=== PATIENT | male | born 1960 | race Hispanic/Latino ===

== ENCOUNTER 2022-12-22 11:58 | Emergency (ER) | payer BC ==
[~2022-12-22 11:58] MED LIST: Iopamidol-370 76% 500 ML MDV (1 ML CHARGE) ONE
[2022-12-22 12:48] LABS: #Basophils 0.1 thou/uL (0.0-0.2); #Eosinphils 0.2 thou/uL (0.0-0.7); #Monocytes 0.5 thou/uL (0.11-0.59); #Neutrophils 4.7 thou/uL (1.40-6.50); %Basophils 0.9 % (0.0-1.0); %Eosinophils 2.1 % (0.0-10.0); %Lymphocytes 26.7 % (21.0-51.0); %Monocytes 7.1 % (0.0-10.0); %Neutrophils 63.2 % (42.0-75.0); Hemoglobin 13.2 g/dL (14.0-18.0); Mean Corpuscular Hemoglobin 33.8 pg (27.0-31.0); Mean Platelet Volume 7.6 fL (7.4-10.4); Platelet Count 253 10x3/uL (130-400); RBC Distribution Width 12.9 % (11.5-14.5); Red Blood Cell (RBC) Count 3.92 mill/uL (4.70-6.10); White Blood Cell (WBC) Count 7.4 10x3/uL (4.8-10.8)
[2022-12-22 13:10] LABS: ALT (SGPT) 16 U/L (8-55); AST (SGOT) 15 U/L (5-34); Albumin 4.5 g/dL (3.5-5.0); Alkaline Phosphatase 90 U/L (40-110); Anion Gap 14 mmol/L (10-20); BUN (Urea Nitrogen) 11 mg/dL (8.4-25.7); Bilirubin, Total 0.5 mg/dL (0.2-1.2); Calc. Creatinine Clearance 0 mL/min (70-130); Calcium 9.8 mg/dL (7.8-10.44); Carbon Dioxide 26 mmol/L (22-29); Chloride 104 mmol/L (98-107); Estimated GFR 100; Glucose 99 mg/dL (70-105); Potassium 4.5 mmol/L (3.5-5.1); Protein, Total 7.5 g/dL (6.0-8.3); Sodium 139 mmol/L (136-145)
[2022-12-22 13:48] LABS: Bacteria/HPF None Seen HPF (None Seen); Bilirubin Negative (Negative); Blood, Urine Trace (Negative); Clarity Clear (Clear); Glucose, Urine (Dipstick) Normal (Negative); Ketone, Urine Negative (Negative); Leukocyte Negative Leu/uL (Negative); Nitrite Negative (Negative); Protein, Urine (Dipstick) Negative (Neg-Trace); RBC/HPF 0-3 HPF (0-3); Specific Gravity, Urine 1.013 (1.002-1.036); Squamous Epithelial None Seen HPF (0-3); Urobilinogen Normal mg/dL (Less than 2); WBC/HPF 0-3 HPF (0-3)
== END 2022-12-22 15:22 | disposition home or self-care (01) ==
LOC: ERS 11:58
DX: R33.9 Retention of urine, unspecified (principal); N39.43 Post-void dribbling; F17.210 Nicotine dependence, cigarettes, uncomplicated
CPT/HCPCS: 36415; 51702; 74177; 80053; 81003; 81015; 85025; Q9967

== ENCOUNTER 2023-01-03 12:00 | Emergency (ER) | payer BC ==
[2023-01-03 13:32] LABS: #Basophils 0.1 thou/uL (0.0-0.2); #Eosinphils 0.1 thou/uL (0.0-0.7); #Lymphocytes 1.9 thou/uL (1.20-3.40); #Monocytes 0.6 thou/uL (0.11-0.59); #Neutrophils 4.5 thou/uL (1.40-6.50); %Basophils 0.9 % (0.0-1.0); %Lymphocytes 26.6 % (21.0-51.0); %Monocytes 8.5 % (0.0-10.0); Hemoglobin 11.3 g/dL (14.0-18.0); Mean Corpuscular HGB CONC 33.8 g/dL (32.0-36.0); Mean Corpuscular Hemoglobin 34.3 pg (27.0-31.0); Mean Platelet Volume 7.8 fL (7.4-10.4); Platelet Count 252 10x3/uL (130-400); RBC Distribution Width 12.7 % (11.5-14.5); Red Blood Cell (RBC) Count 3.29 mill/uL (4.70-6.10); White Blood Cell (WBC) Count 7.3 10x3/uL (4.8-10.8)
[2023-01-03 14:09] LABS: ALT (SGPT) 20 U/L (8-55); AST (SGOT) 18 U/L (5-34); Albumin 3.8 g/dL (3.5-5.0); Alkaline Phosphatase 82 U/L (40-110); Anion Gap 15 mmol/L (10-20); BUN (Urea Nitrogen) 17 mg/dL (8.4-25.7); Bilirubin, Total 0.3 mg/dL (0.2-1.2); Calc. Creatinine Clearance 0 mL/min (70-130); Calcium 10.2 mg/dL (7.8-10.44); Carbon Dioxide 25 mmol/L (22-29); Chloride 104 mmol/L (98-107); Estimated GFR 104; Globulin 3.3 g/dL (2.4-3.5); Glucose 87 mg/dL (70-105); Potassium 4.3 mmol/L (3.5-5.1); Protein, Total 7.1 g/dL (6.0-8.3); Sodium 140 mmol/L (136-145)
[2023-01-03 15:41] LABS: Bacteria/HPF None Seen HPF (None Seen); Bilirubin Negative (Negative); Blood, Urine 2+ (Negative); Calcium Oxalate Crystals Rare HPF (None Seen); Clarity Turbid (Clear); Glucose, Urine (Dipstick) Normal (Negative); Ketone, Urine Negative (Negative); Leukocyte 500 Leu/uL (Negative); Mucous/LPF 3+ LPF (<2+); Nitrite Negative (Negative); Protein, Urine (Dipstick) 50 mg/dL (Neg-Trace); RBC/HPF 21-50 HPF (0-3); Specific Gravity, Urine 1.037 (1.002-1.036); Squamous Epithelial 0-3 HPF (0-3); Urobilinogen Normal mg/dL (Less than 2); WBC/HPF Greater than 50 HPF (0-3); pH, Urine 5.5 (5.0-9.0)
== END 2023-01-03 15:40 | disposition home or self-care (01) ==
LOC: ERS 12:00
DX: K59.00 Constipation, unspecified (principal); F17.210 Nicotine dependence, cigarettes, uncomplicated
CPT/HCPCS: 36415; 74018; 80053; 81003; 81015; 85025

== ENCOUNTER 2023-01-18 12:14 | Outpatient (CLI) | payer BC | END 2023-01-18 12:15 | disposition home or self-care (01) | LOC: SCSMRI 12:14 | PROVIDERS: ATTEND Internal Medicine | DX: C34.90 Malignant neoplasm of unspecified part of unspecified bronchus or lung (principal); C79.31 Secondary malignant neoplasm of brain; G93.6 Cerebral edema | CPT/HCPCS: 70553 ==

== ENCOUNTER 2023-02-19 15:02 | Inpatient (IN) | payer BC ==
[2023-02-19 15:44] LABS: Hemoglobin 13.9 g/dL (14.0-18.0); Mean Corpuscular HGB CONC 33.1 g/dL (32.0-36.0); Mean Corpuscular Hemoglobin 30.8 pg (27.0-31.0); Mean Corpuscular Volume 92.9 fl (78.0-98.0); RBC Distribution Width 13.2 % (11.5-14.5); Red Blood Cell (RBC) Count 4.52 mill/uL (4.70-6.10); White Blood Cell (WBC) Count 4.7 10x3/uL (4.8-10.8)
[2023-02-19 15:46] LABS: Delete Auto Diff?? YES; Manual Diff?? YES; Platelet Count 119 10x3/uL (130-400)
[2023-02-19 16:08] LABS: ALT (SGPT) 844 U/L (8-55); AST (SGOT) 620 U/L (5-34); Albumin 3.3 g/dL (3.5-5.0); Alkaline Phosphatase 123 U/L (40-110); Anion Gap 14 mmol/L (10-20); BUN (Urea Nitrogen) 41 mg/dL (8.4-25.7); Band 29 % (5-11); Bilirubin, Total 0.6 mg/dL (0.2-1.2); Calc. Creatinine Clearance 0 mL/min (70-130); Calcium 9.4 mg/dL (7.8-10.44); Carbon Dioxide 31 mmol/L (22-29); CellaVision Operator ID LAB.MJL; Chloride 101 mmol/L (98-107); Estimated GFR 99; Glucose 184 mg/dL (70-105); Lymphocytes 1 % (21-51); Monocytes 5 % (0-10); Neutrophil 65 % (42-75); Platelet Adequacy Comment Platelets Decreased; Potassium 4.4 mmol/L (3.5-5.1); Protein, Total 6.3 g/dL (6.0-8.3); RBC Morphology Within Normal Limits; Sodium 142 mmol/L (136-145); Total Cell Count 102
[2023-02-19] MEDS ORDERED: Ampicillin/Sulbactam 3 GM in Sodium Chloride 0.9% 100 ML IVPB SCH ×2 (17:45→23:59)
[2023-02-19] MEDS ORDERED: Ondansetron PF 4 MG/2 ML Vial IVP PRN (21:01)
[2023-02-19 21:13] LABS: Bacteria/HPF 4+ HPF (None Seen); Bilirubin Negative (Negative); Blood, Urine 3+ (Negative); CAUTI Indications for Culture Spinal Cord Injury; Clarity Extra Turbid (Clear); Glucose, Urine (Dipstick) Normal (Negative); Ketone, Urine Negative (Negative); Leukocyte 500 Leu/uL (Negative); Nitrite 2+ (Negative); Protein, Urine (Dipstick) 70 mg/dL (Neg-Trace); RBC/HPF Greater than 50 HPF (0-3); Squamous Epithelial None Seen HPF (0-3); Triple Phosphate Crystal 2+ HPF (None Seen); Urobilinogen Normal mg/dL (Less than 2); WBC/HPF Greater than 50 HPF (0-3)
[2023-02-19 21:14] LABS: Specific Gravity, Urine 1.044 (1.002-1.036)
[2023-02-19 21:15] LABS: Urine Culture Reflex Yes Yes
[2023-02-19] MEDS ORDERED: Lactated Ringer's 500 ML IV SCH (21:30)
[2023-02-19] MEDS ORDERED: Pantoprazole 40 MG VIAL IVP SCH (21:30)
[2023-02-19] MEDS: Dextrose 5%-Lactated Ringers 1,000 ML IV SCH (22:49)
[2023-02-19] MEDS ORDERED: Lactated Ringer's 1,000 ML IV SCH (23:15)
[2023-02-19] MEDS ORDERED: Vancomycin 1 GM in Premix Bag 1 BAG IVPB SCH (23:15)
[2023-02-19 23:19] LABS: Hemoglobin A1c 6.7 % (4.0-6.0)
[2023-02-20] MEDS: Dextrose 5%-Lactated Ringers 1,000 ML IV SCH ×2 (00:46→17:00)
[2023-02-20] MEDS: Cefepime 2 GM in Sodium Chloride 0.9% 100 ML IVPB SCH ×3 (00:47→23:30)
[2023-02-20 04:57] LABS: #Neutrophils 3.7 thou/uL (1.40-6.50); %Lymphocytes 1.6 % (21.0-51.0); %Monocytes 0.5 % (0.0-10.0); %Neutrophils 97.4 % (42.0-75.0); Hemoglobin 11.5 g/dL (14.0-18.0); Mean Corpuscular HGB CONC 32.7 g/dL (32.0-36.0); Mean Corpuscular Hemoglobin 30.8 pg (27.0-31.0); Mean Corpuscular Volume 94.4 fl (78.0-98.0); Mean Platelet Volume 10.4 fL (7.4-10.4); Platelet Count 94 10x3/uL (130-400); RBC Distribution Width 13.3 % (11.5-14.5); Red Blood Cell (RBC) Count 3.73 mill/uL (4.70-6.10); White Blood Cell (WBC) Count 3.8 10x3/uL (4.8-10.8)
[2023-02-20 05:05] LABS: Manual Diff?? YES
[2023-02-20 05:20] LABS: ALT (SGPT) 1393 U/L (8-55); AST (SGOT) 933 U/L (5-34); Albumin 2.7 g/dL (3.5-5.0); Alkaline Phosphatase 95 U/L (40-110); Anion Gap 9 mmol/L (10-20); BUN (Urea Nitrogen) 30 mg/dL (8.4-25.7); Bilirubin, Total 0.5 mg/dL (0.2-1.2); Calc. Creatinine Clearance 71 mL/min (70-130); Calcium 8.5 mg/dL (7.8-10.44); Carbon Dioxide 29 mmol/L (22-29); Chloride 106 mmol/L (98-107); Estimated GFR 108; Globulin 2.4 g/dL (2.4-3.5); Glucose 136 mg/dL (70-105); Potassium 4.1 mmol/L (3.5-5.1); Protein, Total 5.1 g/dL (6.0-8.3); Sodium 140 mmol/L (136-145)
[2023-02-20 05:31] LABS: Band 18 % (5-11); Neutrophil 82 % (42-75); Platelet Adequacy Comment Platelets Decreased; Total Cell Count 100
[2023-02-20] MEDS ORDERED: Dextrose 5% in Water 1,000 ML IV PRN (06:34)
[2023-02-20] MEDS ORDERED: Glucagon 1 MG/ML KIT IM PRN (06:34)
[2023-02-20] MEDS ORDERED: HumaLOG 300 UNITS/3 ML VIAL SC PRN ×2 (06:34)
[2023-02-20] MEDS ORDERED: Dextrose 50% Abboject 50 ML SYRINGE SLOW IVP PRN (06:34)
[2023-02-20] MEDS ORDERED: Dexamethasone 4 MG TAB PO SCH (08:45)
[2023-02-20] MEDS: Pantoprazole 40 MG VIAL IVP SCH (09:41)
[2023-02-20] MEDS: Vancomycin HCl 500 MG in Sodium Chloride 0.9% 100 ML IVPB SCH ×2 (10:15→22:19)
[2023-02-20] MEDS ORDERED: Iopamidol-370 76% 500 ML MDV (1 ML CHARGE) ONE (10:39)
[2023-02-20] MEDS ORDERED: Electrolyte Replacement Protocol 1 EACH FS SCH (12:56)
[2023-02-20] MEDS ORDERED: D5W-AA 4.25% with LYTES 1,000 ML BAG(PPN) IV SCH (13:00)
[2023-02-20 13:08] LABS: HBCM Index 0.07 S/CO (0-0.79); HIV (1/2) Antibody/Antigen Non-Reactive (NonReactive); Hep A IgM AB Non-Reactive S/CO (NonReactive); Hep A IgM S/CO 0.23 S/CO (0-0.79); Hep B Surf Ag Non-Reactive S/CO (NonReactive); Hep C IgG Ab Non-Reactive S/CO (NonReactive); Hep C Index 0.07 S/CO (0-0.79); Hepatitis B Core IgM Abs Non-Reactive S/CO (NonReactive)
[2023-02-20] MEDS: D5W-AA 4.25% with LYTES 1,000 ML IV SCH (14:14)
[2023-02-20] MEDS: Dexamethasone 4 MG TAB PO SCH (16:33)
[2023-02-21 04:18] LABS: Hemoglobin 11.4 g/dL (14.0-18.0); Mean Corpuscular HGB CONC 32.6 g/dL (32.0-36.0); Mean Corpuscular Hemoglobin 30.6 pg (27.0-31.0); Mean Corpuscular Volume 93.8 fl (78.0-98.0); Mean Platelet Volume 9.6 fL (7.4-10.4); RBC Distribution Width 13.5 % (11.5-14.5); Red Blood Cell (RBC) Count 3.73 mill/uL (4.70-6.10); White Blood Cell (WBC) Count 2.6 10x3/uL (4.8-10.8)
[2023-02-21 04:20] LABS: Delete Auto Diff?? YES; Manual Diff?? YES; Platelet Count 75 10x3/uL (130-400)
[2023-02-21 04:49] LABS: ALT (SGPT) 1152 U/L (8-55); AST (SGOT) 424 U/L (5-34); Albumin 2.7 g/dL (3.5-5.0); Alkaline Phosphatase 84 U/L (40-110); Anion Gap 10 mmol/L (10-20); BUN (Urea Nitrogen) 23 mg/dL (8.4-25.7); Bilirubin, Total 0.6 mg/dL (0.2-1.2); CRP (Inflammatory) 6.44 mg/dL (= or < 0.5); Calc. Creatinine Clearance 78 mL/min (70-130); Calcium 8.1 mg/dL (7.8-10.44); Carbon Dioxide 30 mmol/L (22-29); Chloride 99 mmol/L (98-107); Estimated GFR 111; Globulin 2.1 g/dL (2.4-3.5); Glucose 126 mg/dL (70-105); Protein, Total 4.8 g/dL (6.0-8.3); Sodium 135 mmol/L (136-145)
[2023-02-21 04:51] LABS: Band 26 % (5-11); CellaVision Operator ID LAB.CLH1; Neutrophil 74 % (42-75); Platelet Adequacy Comment Platelets Decreased; Polychromasia SLIGHT = 2-3 cells HPF (0-2); Total Cell Count 100
[2023-02-21] MEDS: Dextrose 5%-Lactated Ringers 1,000 ML IV SCH ×2 (05:02→21:11)
[2023-02-21] MEDS: D5W-AA 4.25% with LYTES 1,000 ML IV SCH ×2 (05:02→21:12)
[2023-02-21] MEDS: Pantoprazole 40 MG VIAL IVP SCH (08:39)
[2023-02-21] MEDS: Dexamethasone 4 MG TAB PO SCH ×2 (08:44→16:27)
[2023-02-21 10:17] LABS: Vancomycin, Trough 4.9 ug/mL
[2023-02-21] MEDS: Vancomycin HCl 750 MG in Sodium Chloride 0.9% 250 ML 250 ML IVPB SCH ×2 (12:01→18:23)
[2023-02-21] MEDS: Cefepime 2 GM in Sodium Chloride 0.9% 100 ML IVPB SCH ×2 (13:24→23:28)
[2023-02-21] MEDS ORDERED: Polyethylene Glycol 3350 17 GM Packet PO PRN (21:49)
[2023-02-22] MEDS: Vancomycin HCl 750 MG in Sodium Chloride 0.9% 250 ML 250 ML IVPB SCH ×2 (03:57→12:04)
[2023-02-22 04:55] LABS: Base Excess (BEa) 4.2 mEq/L (-2.0 to +3.0); CO2 Tension 34.2 mmHg (35.0-45.0); Calcium, Ionized (arterial) 1.07 mmol/L (1.12-1.30); Carboxyhemoglobin (COHb) 0.7 gm% (0.0-3.0); Hematocrit-ABG 34 % (42.0-52.0); Hemoglobin (Hb) 11.6 g/dL (14.0-18.0); O2 Tension (PaO2), arterial 66.7 mmHg (> 80.0); Potassium - ABG Lab 3.83 mmol/L (3.70-5.30); pH, Arterial 7.516 (7.35-7.45)
[2023-02-22 05:22] LABS: #Neutrophils 1.4 thou/uL (1.40-6.50); %Basophils 0.6 % (0.0-1.0); %Lymphocytes 4.4 % (21.0-51.0); %Monocytes 0.6 % (0.0-10.0); %Neutrophils 89.4 % (42.0-75.0); Hemoglobin 10.9 g/dL (14.0-18.0); Mean Corpuscular HGB CONC 33.3 g/dL (32.0-36.0); Mean Corpuscular Hemoglobin 30.2 pg (27.0-31.0); Mean Corpuscular Volume 90.6 fl (78.0-98.0); Mean Platelet Volume 9.5 fL (7.4-10.4); RBC Distribution Width 13.3 % (11.5-14.5); Red Blood Cell (RBC) Count 3.61 mill/uL (4.70-6.10); White Blood Cell (WBC) Count 1.6 10x3/uL (4.8-10.8)
[2023-02-22 05:28] LABS: Platelet Count 71 10x3/uL (130-400)
[2023-02-22 05:48] LABS: ALT (SGPT) 666 U/L (8-55); AST (SGOT) 175 U/L (5-34); Albumin 2.6 g/dL (3.5-5.0); Alkaline Phosphatase 81 U/L (40-110); Anion Gap 12 mmol/L (10-20); BUN (Urea Nitrogen) 14 mg/dL (8.4-25.7); Bilirubin, Total 0.7 mg/dL (0.2-1.2); CRP (Inflammatory) 8.81 mg/dL (= or < 0.5); Calc. Creatinine Clearance 94 mL/min (70-130); Calcium 7.6 mg/dL (7.8-10.44); Carbon Dioxide 25 mmol/L (22-29); Chloride 93 mmol/L (98-107); Estimated GFR 115; Glucose 104 mg/dL (70-105); Protein, Total 4.6 g/dL (6.0-8.3); Sodium 126 mmol/L (136-145)
[2023-02-22] MEDS: Pantoprazole 40 MG VIAL IVP SCH (08:14)
[2023-02-22] MEDS: Dexamethasone 4 MG TAB PO SCH (08:14)
[2023-02-22] MEDS ORDERED: Dexamethasone 4 MG in Sodium Chloride 0.9% 50 ML IVPB SCH (09:00)
[2023-02-22] MEDS: Dexamethasone 4 mg/ml Vial SLOW IVP SCH ×2 (09:03→20:50)
[2023-02-22 10:11] VITALS: BMI 14.8
[2023-02-22] MEDS: Cefepime 2 GM in Sodium Chloride 0.9% 100 ML IVPB SCH (11:07)
[2023-02-22] MEDS: D5W-AA 4.25% with LYTES 1,000 ML IV SCH (11:07)
[2023-02-22] MEDS: Dextrose 5%-Lactated Ringers 1,000 ML IV SCH (11:07)
[2023-02-22] MEDS: Vancomycin 1 GM in Premix Bag 1 BAG IVPB SCH ×2 (13:32→20:51)
[2023-02-22] MEDS ORDERED: Piperacillin/Tazobactam 3.375 GM in Sodium Chloride 0.9% 100 ML IVPB SCH (23:30)
[2023-02-23] MEDS: D5W-AA 4.25% with LYTES 1,000 ML IV SCH ×2 (00:27→14:25)
[2023-02-23] MEDS: Vancomycin 1 GM in Premix Bag 1 BAG IVPB SCH (03:55)
[2023-02-23 05:06] LABS: Hemoglobin 11.5 g/dL (14.0-18.0); Mean Corpuscular HGB CONC 34.3 g/dL (32.0-36.0); Mean Corpuscular Hemoglobin 30.5 pg (27.0-31.0); Mean Corpuscular Volume 88.9 fl (78.0-98.0); Mean Platelet Volume 9.8 fL (7.4-10.4); RBC Distribution Width 12.8 % (11.5-14.5); Red Blood Cell (RBC) Count 3.77 mill/uL (4.70-6.10); White Blood Cell (WBC) Count 1.3 10x3/uL (4.8-10.8)
[2023-02-23 05:07] LABS: Delete Auto Diff?? YES; Manual Diff?? YES; Platelet Count 63 10x3/uL (130-400)
[2023-02-23 05:17] LABS: ALT (SGPT) 480 U/L (8-55); AST (SGOT) 98 U/L (5-34); Albumin 2.8 g/dL (3.5-5.0); Alkaline Phosphatase 80 U/L (40-110); Anion Gap 12 mmol/L (10-20); BUN (Urea Nitrogen) 17 mg/dL (8.4-25.7); Bilirubin, Total 0.4 mg/dL (0.2-1.2); CRP (Inflammatory) 8.53 mg/dL (= or < 0.5); Calc. Creatinine Clearance 91 mL/min (70-130); Calcium 8.5 mg/dL (7.8-10.44); Carbon Dioxide 26 mmol/L (22-29); Chloride 93 mmol/L (98-107); Estimated GFR 114; Globulin 2.6 g/dL (2.4-3.5); Glucose 212 mg/dL (70-105); Potassium 4.1 mmol/L (3.5-5.1); Protein, Total 5.4 g/dL (6.0-8.3); Sodium 127 mmol/L (136-145)
[2023-02-23 06:01] LABS: Band 17 % (5-11); CellaVision Operator ID LAB.CLH1; Hypochromia SLIGHT = 6-15 cells HPF (0-5); Lymphocytes 1 % (21-51); Monocytes 2 % (0-10); Neutrophil 80 % (42-75); Platelet Adequacy Comment Platelets Decreased; Polychromasia SLIGHT = 2-3 cells HPF (0-2); Total Cell Count 100
[2023-02-23] MEDS: Piperacillin/Tazobactam 3.375 GM in Sodium Chloride 0.9% 100 ML IVPB SCH ×4 (06:22→21:41)
[2023-02-23] MEDS: Dexamethasone 4 mg/ml Vial SLOW IVP SCH ×2 (09:18→20:24)
[2023-02-23] MEDS: Pantoprazole 40 MG VIAL IVP SCH (09:18)
[2023-02-23] MEDS: Tamsulosin HCl 0.4 MG CAP PO SCH (09:18)
[2023-02-23 11:12] LABS: Vancomycin, Trough 17.7 ug/mL
[2023-02-23] MEDS: Vancomycin HCl 750 MG in Sodium Chloride 0.9% 250 ML 250 ML IVPB SCH ×2 (13:05→20:24)
[2023-02-24] MEDS: Vancomycin HCl 750 MG in Sodium Chloride 0.9% 250 ML 250 ML IVPB SCH ×2 (03:44→12:49)
[2023-02-24] MEDS: D5W-AA 4.25% with LYTES 1,000 ML IV SCH ×2 (03:44→18:50)
[2023-02-24 04:48] LABS: #Neutrophils 0.6 thou/uL (1.40-6.50); %Basophils 2.9 % (0.0-1.0); %Lymphocytes 5.9 % (21.0-51.0); %Monocytes 1.5 % (0.0-10.0); %Neutrophils 80.9 % (42.0-75.0); Hemoglobin 10.8 g/dL (14.0-18.0); Mean Corpuscular HGB CONC 34.8 g/dL (32.0-36.0); Mean Corpuscular Hemoglobin 30.9 pg (27.0-31.0); Mean Corpuscular Volume 88.8 fl (78.0-98.0); Mean Platelet Volume 9.2 fL (7.4-10.4); RBC Distribution Width 12.6 % (11.5-14.5); Red Blood Cell (RBC) Count 3.49 mill/uL (4.70-6.10); White Blood Cell (WBC) Count 0.7 10x3/uL (4.8-10.8)
[2023-02-24 04:52] LABS: Platelet Count 49 10x3/uL (130-400)
[2023-02-24 04:53] LABS: Manual Diff?? YES
[2023-02-24 05:14] LABS: ALT (SGPT) 355 U/L (8-55); AST (SGOT) 74 U/L (5-34); Albumin 2.8 g/dL (3.5-5.0); Alkaline Phosphatase 78 U/L (40-110); Anion Gap 11 mmol/L (10-20); BUN (Urea Nitrogen) 20 mg/dL (8.4-25.7); Bilirubin, Total 0.4 mg/dL (0.2-1.2); CRP (Inflammatory) 3.37 mg/dL (= or < 0.5); Calc. Creatinine Clearance 91 mL/min (70-130); Calcium 8.4 mg/dL (7.8-10.44); Carbon Dioxide 25 mmol/L (22-29); Chloride 97 mmol/L (98-107); Estimated GFR 114; Globulin 2.7 g/dL (2.4-3.5); Glucose 168 mg/dL (70-105); Potassium 4.4 mmol/L (3.5-5.1); Protein, Total 5.5 g/dL (6.0-8.3); Sodium 129 mmol/L (136-145)
[2023-02-24 05:29] LABS: Band 11 % (5-11); Eosinophils 1 % (0-10); Lymphocytes 4 % (21-51); Monocytes 1 % (0-10); Neutrophil 83 % (42-75); Platelet Adequacy Comment Platelets Decreased; Total Cell Count 100
[2023-02-24] MEDS: Piperacillin/Tazobactam 3.375 GM in Sodium Chloride 0.9% 100 ML IVPB SCH ×3 (06:31→23:54)
[2023-02-24] MEDS: Tamsulosin HCl 0.4 MG CAP PO SCH (08:30)
[2023-02-24] MEDS: Dexamethasone 4 mg/ml Vial SLOW IVP SCH ×2 (09:46→20:50)
[2023-02-24] MEDS: Pantoprazole 40 MG VIAL IVP SCH (09:46)
[2023-02-24 11:27] LABS: Vancomycin, Trough 13.8 ug/mL
[2023-02-25 04:47] LABS: Hemoglobin 10.7 g/dL (14.0-18.0); Mean Corpuscular HGB CONC 34.6 g/dL (32.0-36.0); Mean Corpuscular Hemoglobin 30.3 pg (27.0-31.0); Mean Corpuscular Volume 87.5 fl (78.0-98.0); RBC Distribution Width 12.4 % (11.5-14.5); Red Blood Cell (RBC) Count 3.53 mill/uL (4.70-6.10); White Blood Cell (WBC) Count 0.6 10x3/uL (4.8-10.8)
[2023-02-25 04:53] LABS: Delete Auto Diff?? YES; Manual Diff?? YES; Platelet Count 39 10x3/uL (130-400)
[2023-02-25 05:11] LABS: Phosphorus 2.9 mg/dL (2.3-4.7)
[2023-02-25 05:31] LABS: Band 8 % (5-11); CellaVision Operator ID lab.abc; Lymphocytes 11 % (21-51); Neutrophil 80 % (42-75); Platelet Adequacy Comment Platelets Decreased; RBC Morphology Within Normal Limits; Reactive Lymphocytes 1 % (0-10); Total Cell Count 100; Toxic Granulation SLIGHT
[2023-02-25] MEDS: Piperacillin/Tazobactam 3.375 GM in Sodium Chloride 0.9% 100 ML IVPB SCH (06:25)
[2023-02-25 06:37] LABS: ALT (SGPT) 275 U/L (8-55); AST (SGOT) 43 U/L (5-34); Alkaline Phosphatase 79 U/L (40-110); Anion Gap 10 mmol/L (10-20); BUN (Urea Nitrogen) 19 mg/dL (8.4-25.7); Bilirubin, Total 0.5 mg/dL (0.2-1.2); CRP (Inflammatory) 1.64 mg/dL (= or < 0.5); Calc. Creatinine Clearance 93 mL/min (70-130); Calcium 8.6 mg/dL (7.8-10.44); Carbon Dioxide 26 mmol/L (22-29); Chloride 99 mmol/L (98-107); Estimated GFR 115; Globulin 2.6 g/dL (2.4-3.5); Glucose 173 mg/dL (70-105); Magnesium 1.7 mg/dL (1.6-2.6); Potassium 4.2 mmol/L (3.5-5.1); Protein, Total 5.6 g/dL (6.0-8.3); Sodium 131 mmol/L (136-145)
[2023-02-25] MEDS ORDERED: Magnesium 2 GM/50 ML(in water) 2 GM in Premix Bag 1 BAG IVPB SCH (08:00)
[2023-02-25] MEDS: Tamsulosin HCl 0.4 MG CAP PO SCH (09:49)
[2023-02-25] MEDS: D5W-AA 4.25% with LYTES 1,000 ML IV SCH ×2 (09:49→23:49)
[2023-02-25] MEDS: Pantoprazole 40 MG VIAL IVP SCH (09:49)
[2023-02-25] MEDS: Dexamethasone 4 mg/ml Vial SLOW IVP SCH ×2 (09:49→20:11)
[2023-02-25] MEDS: Amoxicillin/Potassium Clav 875 MG TAB PO SCH (20:11)
[2023-02-26 05:12] LABS: Hemoglobin 11.2 g/dL (14.0-18.0); Mean Corpuscular HGB CONC 33.9 g/dL (32.0-36.0); Mean Corpuscular Hemoglobin 29.7 pg (27.0-31.0); Mean Corpuscular Volume 87.5 fl (78.0-98.0); Mean Platelet Volume 10.7 fL (7.4-10.4); RBC Distribution Width 12.4 % (11.5-14.5); Red Blood Cell (RBC) Count 3.77 mill/uL (4.70-6.10)
[2023-02-26 05:34] LABS: ALT (SGPT) 217 U/L (8-55); AST (SGOT) 31 U/L (5-34); Albumin 3.1 g/dL (3.5-5.0); Alkaline Phosphatase 91 U/L (40-110); Anion Gap 14 mmol/L (10-20); BUN (Urea Nitrogen) 20 mg/dL (8.4-25.7); Bilirubin, Total 0.4 mg/dL (0.2-1.2); Calc. Creatinine Clearance 100 mL/min (70-130); Calcium 8.5 mg/dL (7.8-10.44); Carbon Dioxide 26 mmol/L (22-29); Chloride 95 mmol/L (98-107); Estimated GFR 117; Globulin 2.6 g/dL (2.4-3.5); Glucose 170 mg/dL (70-105); Potassium 4.5 mmol/L (3.5-5.1); Protein, Total 5.7 g/dL (6.0-8.3); Sodium 130 mmol/L (136-145)
[2023-02-26 05:48] LABS: Platelet Count 34 10x3/uL (130-400)
[2023-02-26 05:50] LABS: Delete Auto Diff?? YES; Manual Diff?? YES
[2023-02-26 07:08] LABS: Band 12 % (5-11); CellaVision Operator ID LAB.JMM; Lymphocytes 5 % (21-51); Monocytes 7 % (0-10); Neutrophil 76 % (42-75); Platelet Adequacy Comment Platelets Decreased; Total Cell Count 100
[2023-02-26 07:12] LABS: White Blood Cell (WBC) Count 0.6 10x3/uL (4.8-10.8)
[2023-02-26] MEDS: Dexamethasone 4 MG TAB PO SCH ×2 (09:49→20:22)
[2023-02-26] MEDS: Tamsulosin HCl 0.4 MG CAP PO SCH (09:49)
[2023-02-26] MEDS: Amoxicillin/Potassium Clav 875 MG TAB PO SCH ×2 (09:49→20:22)
[2023-02-26] MEDS: HYDROcodone/Acetaminophen 5/325 mg Tablet PO PRN (12:11)
[2023-02-26] MEDS: D5W-AA 4.25% with LYTES 1,000 ML IV SCH (16:47)
[2023-02-26] MEDS: Sucralfate 1 GM/10 ML UDCUP PO SCH ×2 (16:47→20:22)
[2023-02-27 04:47] LABS: Hemoglobin 11.3 g/dL (14.0-18.0); Mean Corpuscular HGB CONC 34.3 g/dL (32.0-36.0); Mean Corpuscular Hemoglobin 30.2 pg (27.0-31.0); Mean Platelet Volume 9.9 fL (7.4-10.4); RBC Distribution Width 12.3 % (11.5-14.5); Red Blood Cell (RBC) Count 3.74 mill/uL (4.70-6.10); White Blood Cell (WBC) Count 0.5 10x3/uL (4.8-10.8)
[2023-02-27 04:49] LABS: Delete Auto Diff?? YES; Manual Diff?? YES; Platelet Count 33 10x3/uL (130-400)
[2023-02-27 05:12] LABS: ALT (SGPT) 163 U/L (8-55); AST (SGOT) 21 U/L (5-34); Albumin 3.1 g/dL (3.5-5.0); Alkaline Phosphatase 95 U/L (40-110); Anion Gap 11 mmol/L (10-20); BUN (Urea Nitrogen) 19 mg/dL (8.4-25.7); Bilirubin, Total 0.3 mg/dL (0.2-1.2); Calc. Creatinine Clearance 100 mL/min (70-130); Calcium 8.7 mg/dL (7.8-10.44); Carbon Dioxide 28 mmol/L (22-29); Chloride 91 mmol/L (98-107); Estimated GFR 117; Globulin 2.6 g/dL (2.4-3.5); Glucose 161 mg/dL (70-105); Potassium 4.3 mmol/L (3.5-5.1); Protein, Total 5.7 g/dL (6.0-8.3); Sodium 126 mmol/L (136-145)
[2023-02-27 05:30] LABS: Band 2 % (5-11); CellaVision Operator ID lab.abc; Large Platelets 4.8 % (0-5); Lymphocytes 22 % (21-51); Monocytes 11 % (0-10); Neutrophil 64 % (42-75); Platelet Adequacy Comment Significant decrease; RBC Morphology Within Normal Limits; Reactive Lymphocytes 1 % (0-10); Smudge Cells 7.6 %; Total Cell Count 105
[2023-02-27] MEDS: Amoxicillin/Potassium Clav 875 MG TAB PO SCH ×2 (09:19→20:24)
[2023-02-27] MEDS: Tamsulosin HCl 0.4 MG CAP PO SCH (09:19)
[2023-02-27] MEDS: Dexamethasone 4 MG TAB PO SCH ×2 (09:19→20:24)
[2023-02-27] MEDS: Sucralfate 1 GM/10 ML UDCUP PO SCH ×2 (11:35→15:57)
[2023-02-27] MEDS: HYDROcodone/Acetaminophen 5/325 mg Tablet PO PRN (20:26)
[2023-02-27] MEDS: D5W-AA 4.25% with LYTES 1,000 ML IV SCH (22:03)
[2023-02-28 05:00] LABS: Hemoglobin 12.1 g/dL (14.0-18.0); Mean Corpuscular HGB CONC 34.7 g/dL (32.0-36.0); Mean Corpuscular Hemoglobin 29.9 pg (27.0-31.0); Mean Corpuscular Volume 86.2 fl (78.0-98.0); RBC Distribution Width 12.3 % (11.5-14.5); Red Blood Cell (RBC) Count 4.05 mill/uL (4.70-6.10)
[2023-02-28 05:25] LABS: ALT (SGPT) 134 U/L (8-55); AST (SGOT) 22 U/L (5-34); Albumin 3.2 g/dL (3.5-5.0); Alkaline Phosphatase 103 U/L (40-110); Anion Gap 12 mmol/L (10-20); BUN (Urea Nitrogen) 20 mg/dL (8.4-25.7); Bilirubin, Total 0.5 mg/dL (0.2-1.2); Calc. Creatinine Clearance 100 mL/min (70-130); Calcium 8.7 mg/dL (7.8-10.44); Carbon Dioxide 26 mmol/L (22-29); Chloride 95 mmol/L (98-107); Estimated GFR 117; Globulin 2.8 g/dL (2.4-3.5); Glucose 172 mg/dL (70-105); Potassium 4.3 mmol/L (3.5-5.1); Sodium 129 mmol/L (136-145)
[2023-02-28 05:49] LABS: Platelet Count 39 10x3/uL (130-400)
[2023-02-28 05:50] LABS: Delete Auto Diff?? YES; Manual Diff?? YES; White Blood Cell (WBC) Count 0.6 10x3/uL (4.8-10.8)
[2023-02-28 05:56] LABS: Platelet Count 40 10x3/uL (130-400)
[2023-02-28 06:48] LABS: Band 4 % (5-11); CellaVision Operator ID LAB.JMM; Large Platelets 9.6 % (0-5); Lymphocytes 17 % (21-51); Monocytes 19 % (0-10); Neutrophil 54 % (42-75); Platelet Adequacy Comment Platelets Decreased; Promyelocytes 2 % (0-0); RBC Morphology Within Normal Limits; Reactive Lymphocytes 4 % (0-10); Total Cell Count 52
[2023-02-28 07:15] LABS: Fibrinogen 363 mg/dL (253-463)
[2023-02-28 07:17] LABS: D-Dimer Test 3.41 *mcg/mL (0.27-0.43); INR-International Normal Ratio 0.9; PTT 27.1 sec (22.9-36.1); Prothrombin Time 12.1 sec (12.0-14.7)
[2023-02-28] MEDS: Amoxicillin/Potassium Clav 875 MG TAB PO SCH (10:31)
[2023-02-28] MEDS: Dexamethasone 4 MG TAB PO SCH (10:31)
[2023-02-28] MEDS: Tamsulosin HCl 0.4 MG CAP PO SCH (10:31)
[2023-02-28] MEDS: Sucralfate 1 GM/10 ML UDCUP PO SCH ×2 (10:31→11:58)
[2023-02-28 15:29] VITALS: TEMP 97.3
[2023-02-28 16:22] VITALS: BP 102/76
== END 2023-02-28 16:05 | disposition hospice, home (50) | DRG 871 ==
LOC: ERS 15:02 → 2NO 20:14
PROVIDERS: ADMIT Family Medicine; ATTEND Family Medicine
PROC: 3E03329 Introduction of Other Anti-infective into Peripheral Vein, Percutaneous Approach (ICD-10-PCS; 2023-02-19)
PROC: 3E0336Z Introduction of Nutritional Substance into Peripheral Vein, Percutaneous Approach (ICD-10-PCS; 2023-02-21)
PROC: 4A033R1 Measurement of Arterial Saturation, Peripheral, Percutaneous Approach (ICD-10-PCS; principal; 2023-02-22)
DX: A41.9 Sepsis, unspecified organism (principal); E43 Unspecified severe protein-calorie malnutrition; J18.9 Pneumonia, unspecified organism; C34.90 Malignant neoplasm of unspecified part of unspecified bronchus or lung; C78.7 Secondary malignant neoplasm of liver and intrahepatic bile duct; C79.51 Secondary malignant neoplasm of bone; C79.31 Secondary malignant neoplasm of brain; C79.72 Secondary malignant neoplasm of left adrenal gland; E87.20 Acidosis, unspecified; E87.3 Alkalosis; D61.818 Other pancytopenia; Z68.1 Body mass index [BMI] 19.9 or less, adult; R64 Cachexia; E22.2 Syndrome of inappropriate secretion of antidiuretic hormone; Z66 Do not resuscitate; Z51.5 Encounter for palliative care; R31.0 Gross hematuria; D69.6 Thrombocytopenia, unspecified; R74.01 Elevation of levels of liver transaminase levels; N31.9 Neuromuscular dysfunction of bladder, unspecified; K20.80 Other esophagitis without bleeding; R62.7 Adult failure to thrive; J98.2 Interstitial emphysema; D70.9 Neutropenia, unspecified; N40.1 Benign prostatic hyperplasia with lower urinary tract symptoms; R59.0 Localized enlarged lymph nodes; Z79.899 Other long term (current) drug therapy; Z82.3 Family history of stroke; Z82.49 Family history of ischemic heart disease and other diseases of the circulatory system; Z83.438 Family history of other disorder of lipoprotein metabolism and other lipidemia; Z80.42 Family history of malignant neoplasm of prostate; Z80.3 Family history of malignant neoplasm of breast; Z80.8 Family history of malignant neoplasm of other organs or systems; Z90.49 Acquired absence of other specified parts of digestive tract; Z87.891 Personal history of nicotine dependence; T45.1X5A Adverse effect of antineoplastic and immunosuppressive drugs, initial encounter; E11.65 Type 2 diabetes mellitus with hyperglycemia; T66.XXXA Radiation sickness, unspecified, initial encounter; R33.8 Other retention of urine
CPT/HCPCS: 36415; 36416; 51702; 70491; 71045; 71275; 74230; 76705; 80053; 80074; 80202; 81001; 82274; 82533; 82805; 83036; 83605; 83735; 83930; 83935; 84100; 84145; 84300; 84478; 85025; 85049; 85300; 85362; 85379; 85384; 85610; 85652; 85730; 86140; 87040; 87081; 87086; 87389; 93005; 93010; 96361; 96365; C9113; J0295; J0692; J1100; J1650; J1815; J2543; J3370; J3370-JW; J3475; J3490; J7050; J7120; J8540; Q9967